=== PATIENT | male | born 1965 | race Caucasian/White ===

== ENCOUNTER → 2019-04-30 09:17 | Outpatient (BNVA) | payer MEDICAID, SELFPAY | PROVIDERS: Referring Provider Nurse Practitioner Family; Visit Provider Orthopaedic Surgery | DX: M25.552 Pain in left hip (principal) | CPT/HCPCS: 73502 ==

== ENCOUNTER → 2020-05-21 12:07 | Outpatient (BNVA) | payer MEDICAID, SELFPAY | PROVIDERS: PCP Nurse Practitioner Family; Visit Provider Psychiatry & Neurology Neurology | DX: G56.22 Lesion of ulnar nerve, left upper limb (principal); F17.210 Nicotine dependence, cigarettes, uncomplicated | CPT/HCPCS: 95886; 95908 ==

== ENCOUNTER → 2020-07-30 08:11 | Outpatient (BNVA) | payer MEDICAID, SELFPAY | PROVIDERS: PCP Nurse Practitioner Family; Referring Provider Nurse Practitioner Family; Visit Provider Specialist | DX: M25.522 Pain in left elbow (principal) | CPT/HCPCS: 73080 ==

== ENCOUNTER 2020-08-11 07:28 | Outpatient (CLI) | payer MEDICAID, SELFPAY ==
--- NOTE | 2020-08-11 07:36 | CT_ITS ---
WS: [id number] LDCT LUNG CANCER SCREENING HISTORY: HX OF TOBACCO USE/NICTOTINE DEPENDENCE,CIGARETTES TECHNIQUE: Axial imaging performed from the apices to 1 cm below the costophrenic angles. Coronal and sagittal reformats are submitted with axial MIP series. All CT scans at [facility] use at least one of these dose optimization techniques: automated exposure control; mA and/or kV adjustment per patient size (includes targeted exams where dose is matched to clinical indication); or iterativ e reconstruction. DLP: 101.81 mGy.cm DIvol: 2.85 mGy COMPARISON: None available. Diagnostic quality: Satisfactory Lung Nodules: There are multiple benign granuloma throughout the lungs. No suspicious nodules. There are no noncalcified masses or nodules. No endobronchial lesion. Lungs: Chronic emphysema. Heart: Normal size heart. No effusion. There are a few scattered coronary artery calcifications. Other findings: There are a few small benign-appearing lymph nodes. These cannot be further classifie d on this lung screening exam. Some these lymph nodes are calcified. Mild atherosclerosis aorta. Cholelithiasis. CT/CT lung screening [id number] IMPRESSION: LUNG-RADS: 1-Negative FOLLOW UP: 12 Month: Continue annual screening with LDCT OTHER FINDINGS (S MODIFIER): None.
== END 2020-08-11 07:29 | disposition home or self-care (01) ==
PROVIDERS: PCP Nurse Practitioner Family; Visit Provider Nurse Practitioner Family
DX: Z12.2 Encounter for screening for malignant neoplasm of respiratory organs (principal); Z87.891 Personal history of nicotine dependence
CPT/HCPCS: 71271

== ENCOUNTER 2021-01-11 14:01 | Outpatient (CLI) | payer MEDICAID, SELFPAY ==
[2021-01-11 15:41] LABS: Basophils # 0.1 10^3/uL (0.0-0.1); Basophils % 1.4 %; Eosinophils # 0.5 10^3/uL (0.0-0.8); Eosinophils % 8.5 %; Hematocrit 45.8 % (42.0-52.0); Hemoglobin 15.3 g/dL (11.7-16.6); Lymphocytes # 2.8 10^3/uL (0.8-4.8); Lymphocytes % 44.2 %; Mean Corpuscular HGB Conc 33.4 g/dL (30.0-36.0); Mean Corpuscular Hemoglobin 28.5 pg (28.0-34.0); Mean Corpuscular Volume 85.3 fl (80-94); Mean Platelet Volume 9.9 fL (7.4-10.4); Monocytes # 0.5 10^3/uL (0.2-0.9); Neutrophils # 2.37 10^3/uL (1.8-7.7); Neutrophils % 37.4 %; Nucleated Red Blood Cells % 0 %; Platelet Count 235 10^3/cmm (130-400); Red Blood Count 5.37 10^6/uL (4.1-5.3); White Blood Count 6.3 10^3/uL (4.0-10.0)
--- NOTE | 2021-01-11 16:27 | ONC CON_ITS ---
Dr. Estrada New Patient Note Patient: Asa Villatoro Unit #: [id number]: 1965 Dicatated By: Rudy Estrada M.D.Date of Visit: Jan 11, 2021 Onc MED New Patient/Consult Referring Physician: Fletcher Raines History of Present Illness: Mr. Asa Villatoro, is a 56-year-old gentleman with a longstanding history of smoking, went to see his PMD on December 14, 2020 with bumps on arms due to yellowjacket attack, his lab work-up done on December 14, 2020 showed white blood count 10.3 normal being 2.6-8.8 hemoglobin 15.8 hematocrit 48.1 platelets 217,000 ANC 5500. Patient denies any history of leukocytosis in the past, denies any history of recurrent infections, denies any history of dysuria or hematuria, denies any history of sinus problem, patient is a chronic smoker and smokes about half pack a day, denies alcohol use, denies any night sweats, denies any peripheral lymphadenopathy or abdominal fullness, denies any weight loss, denies any recurrent infections, denies any abdominal pain, melena or hematochezia. Past Medical History: Mr. Villatoro's medical history consists of biotin deficiency, degenerative disease of the spine, degenerative joint disease, hyperlipidemia, and hypertension. Past Surgical History: Mr. Villatoro's surgical history is unremarkable. Medications: Atorvastatin Calcium 1 Tablet (of 40 mg) Oral daily, Ergocalciferol 1 Capsule (of 50,000 International Unit(s)) Oral daily, Lisinopril 1 Tablet (of 40 mg) Oral daily, Meloxicam 1 Tablet (of 7.5 mg) Oral daily PRN Allergies: Ampicillin Social History: Mr. Villatoro has a life partner. He is a daily smoker who has smoked 0.5 packs/day for 42 years. He has indicated exposure to the following products: chewing tobacco. Family History: There is no documented family history. Review Of Symptoms: Review of Systems is not available for this patient. Vital Signs: Performed on Jan 11, 2021 16:07: 0, 2, 0.00, 0.00 sq.m, 95 % (LOW), 75 /min, 22 /min, 126/70 mm(hg), 97.7 F (LOW), and 217.2 lbs (HIGH). Performance Status: 0 - Fully active, able to carry on all predisease activities without restrictions. (ECOG) Physical Examination: ENMT - No mouth sores, no thrush, no jaundice no cervical lymphadenopathy, Respiratory - Poor air entry otherwise clear, Cardiovascular - Regular rate and rhythm of heart, Abdomen - Soft, bowel sounds present, Extremities - No visible edema. Lab/Imaging: Most recent lab results are not available for this patient. Impression: Mild leukocytosis, etiology unclear could be due to inflammatory response to yellowjacket bite, or chronic inflammation e.g. arthritis or chronic smoking, or underlying myeloproliferative disorder but less likely History of mild polycythemia, probably reactive to chronic smoking, or underlying sleep apnea. Hypertension Chronic arthritis Plan: Discussed with patient regarding his labs white blood count 6.3 hemoglobin 15.3 hematocrit 45.8 platelets 235,000 with a normal differential Clinically, patient doing well with no new signs symptom suggestive for acute or chronic infection, his repeat CBC done today shows normal values, resolution of mild leukocytosis as well as polycythemia. At this point, no further work-up from hematology point of view rather monitor, patient is scheduled to see his PMD in first week of February 2021, in that case, we will see him back in 2 months with CBC, Patient was advised to quit smoking and was offered any assistance he may need Signed By: Rudy Estrada M.D. <<Signature on File>>
== END 2021-01-11 14:02 | disposition home or self-care (01) ==
LOC: ONCMED 14:07
PROVIDERS: PCP Nurse Practitioner Family; Visit Provider Internal Medicine Hematology & Oncology
DX: D72.829 Elevated white blood cell count, unspecified (principal); D75.1 Secondary polycythemia; I10 Essential (primary) hypertension; M19.90 Unspecified osteoarthritis, unspecified site; F17.210 Nicotine dependence, cigarettes, uncomplicated; Z79.899 Other long term (current) drug therapy
CPT/HCPCS: 36415; 85025; 99204

== ENCOUNTER → 2021-02-15 08:27 | Outpatient (BNVA) | payer MEDICAID, SELFPAY | PROVIDERS: PCP Nurse Practitioner Family; Visit Provider Internal Medicine | DX: Z01.812 Encounter for preprocedural laboratory examination (principal); R19.5 Other fecal abnormalities | CPT/HCPCS: 87635 ==

== ENCOUNTER 2021-04-07 09:40 | Outpatient (CLI) | payer MEDICAID, SELFPAY ==
[2021-04-07 10:00] LABS: Basophils # 0.1 10^3/uL (0.0-0.1); Basophils % 0.9 %; Eosinophils # 0.2 10^3/uL (0.0-0.8); Eosinophils % 2.6 %; Hematocrit 47.9 % (42.0-52.0); Hemoglobin 15.6 g/dL (11.7-16.6); Lymphocytes # 3.2 10^3/uL (0.8-4.8); Lymphocytes % 42.4 %; Mean Corpuscular HGB Conc 32.6 g/dL (30.0-36.0); Mean Corpuscular Volume 85.8 fl (80-94); Mean Platelet Volume 9.2 fL (7.4-10.4); Monocytes # 0.6 10^3/uL (0.2-0.9); Monocytes % 7.7 %; Neutrophils # 3.41 10^3/uL (1.8-7.7); Neutrophils % 45.9 %; Nucleated Red Blood Cells % 0 %; Platelet Count 218 10^3/cmm (130-400); Red Blood Count 5.58 10^6/uL (4.1-5.3); Red Cell Distribution Width 13.7 % (12.1-15.1); White Blood Count 7.4 10^3/uL (4.0-10.0)
--- NOTE | 2021-04-08 21:08 | ONC FU_ITS ---
[facility] Progress Note Patient: Asa Villatoro Unit #: [id number]: 1965 Dicatated By: Lucero Del Valle N.P.Date of Visit:Apr 07, 2021 Onc MED Follow-up/Prog Note Chief Complaint: Leukocytosis History of Present Illness: Mr. Asa Villatoro, is a 56-year-old gentleman with a longstanding history of smoking, went to see his PMD on December 14, 2020 with bumps on arms due to yellowjacket attack, his lab work-up done on December 14, 2020 showed white blood count 10.3 normal being 2.6-8.8 hemoglobin 15.8 hematocrit 48.1 platelets 217,000 ANC 5500. Patient denies any history of leukocytosis in the past, denies any history of recurrent infections, denies any history of dysuria or hematuria, denies any history of sinus problem, patient is a chronic smoker and smokes about half pack a day, denies alcohol use, denies any night sweats, denies any peripheral lymphadenopathy or abdominal fullness, denies any weight loss, denies any recurrent infections, denies any abdominal pain, melena or hematochezia. Patient presents today for follow-up of leukocytosis. He denies weakness or fatigue. His appetite has been good. He denies fever, chills, night sweats. No shortness of breath, cough, chest pain. No GI problems or problems. He has bilateral shoulder pain that is chronic in nature. He denies headache or dizziness. He continues to smoke approximately half pack a day. Review Of Symptoms: See above. Past Medical History: Biotin deficiency Degenerative disease of the spine Degenerative joint disease Hyperlipidemia Hypertension Past Surgical History: Mr. Villatoro's surgical history is unremarkable. Allergies: Ampicillin Medications: Atorvastatin Calcium 1 Tablet (of 40 mg) Oral daily Ergocalciferol 1 Capsule (of 50,000 International Unit(s)) Oral daily Lisinopril 1 Tablet (of 40 mg) Oral daily Meloxicam 1 Tablet (of 7.5 mg) Oral daily PRN Family History: There is no documented family history. Social History: Mr. Villatoro has a life partner. He is a daily smoker who has smoked 0.5 packs/day for 43 years. He has indicated exposure to the following products: chewing tobacco. Physical Examination: Performed on Apr 07, 2021 13:19: Height - 73 in, Weight - 216.6 lbs (LOW), BSA - 2.23 sq.m, BMI - 28.58, Temperature - 98.2 F (LOW), Pulse - 78 /min, Respiration - 16 /min, BP - 120/70 mm(hg), O2 Sat - 95 % (LOW), Pain - 2, and Fatigue - 3. Performance Status: 0 - Fully active, able to carry on all predisease activities without restrictions. (ECOG) Constitutional Alert, cooperative, oriented. Mood and affect appropriate. Appears close to chronological age. Well nourished. Well developed. Respiratory Lungs are clear to auscultation without rhonchi or wheezing. Cardiovascular Regular rate and rhythm of heart without murmurs, gallops or rubs. Abdomen Non-tender, non-distended, no masses, ascites or hepatosplenomegaly. Good bowel sounds. No guarding or rebound tenderness. Musculoskeletal No tenderness or swelling, normal range of motion without obvious weakness. Psychiatric Alert and oriented times three. Coherent speech. Verbalizes understanding of our discussions today. Laboratory: Test performed on Apr 07, 2021 09:52 WBC 7.4 10 3/uL RBC 5.58 10 6/uL HGB 15.6 g/dL HCT 47.9 % MCV 85.8 fl MCH 28.0 pg MCHC 32.6 g/dL RDW 13.7 % Platelet Count 218 10 3/cmm MPV 9.2 fL Neutrophils 3.41 10 3/uL Lymphocytes 3.2 10 3/uL Monocytes 0.6 10 3/uL Eosinophils 0.2 10 3/uL Basophils 0.1 10 3/uL Neutrophil % 45.9 % Lymphocyte % 42.4 % Monocyte % 7.7 % Eosinophil % 2.6 % Basophils % 0.9 % NRBC % 0 % Impression: Mild leukocytosis, etiology unclear could be due to inflammatory response to yellowjacket bite, or chronic inflammation e.g. arthritis or chronic smoking, or underlying myeloproliferative disorder but less likely History of mild polycythemia, probably reactive to chronic smoking, or underlying sleep apnea. Hypertension Chronic arthritis Plan: Labs were reviewed with patient WBC 7.4 hemoglobin 15.6 hematocrit 47.9 platelets 218,000. Patient shows no signs of infection. Leukocytosis has resolved. Patient was advised to quit smoking. He will be seen on an as-needed basis. Signed By: Lucero Del Valle N.P. <<Signature on File>>
== END 2021-04-07 09:41 | disposition home or self-care (01) ==
PROVIDERS: PCP Nurse Practitioner Family; Visit Provider Nurse Practitioner Family
DX: D72.829 Elevated white blood cell count, unspecified (principal); D75.1 Secondary polycythemia; I10 Essential (primary) hypertension; F17.210 Nicotine dependence, cigarettes, uncomplicated; E53.8 Deficiency of other specified B group vitamins; E78.5 Hyperlipidemia, unspecified; Z79.899 Other long term (current) drug therapy
CPT/HCPCS: 36415; 85025; 99214

== ENCOUNTER → 2021-11-17 08:22 | Outpatient (BNVA) | payer MEDICAID, SELFPAY | PROVIDERS: PCP Nurse Practitioner Family; Visit Provider Nurse Practitioner Family | DX: I10 Essential (primary) hypertension (principal); R73.03 Prediabetes | CPT/HCPCS: 80053; 83036; 85025 ==

== ENCOUNTER → 2021-11-22 13:27 | Outpatient (BNVA) | payer MEDICAID, SELFPAY | PROVIDERS: PCP Nurse Practitioner Family; Visit Provider Nurse Practitioner Family | DX: E87.5 Hyperkalemia (principal) | CPT/HCPCS: 80053 ==

== ENCOUNTER 2022-05-30 08:16 | Outpatient (CLI) | payer MEDICAID, SELFPAY ==
--- NOTE | 2022-05-30 08:45 | MR_ITS ---
WS: [id number] MRI LUMBAR SPINE NONCONTRAST HISTORY: Back pain. Injury 2 years ago. LEFT leg pain and numbness. COMPARISON: None available. TECHNIQUE: Sagittal and axial multisequence imaging is submitted. Mild straightening of the normal cervical lordosis. Moderate degenerative disc space narrowing with v ertebral body osteophytes at C5 and C6. Straightening of the normal lumbar lordosis. L3 and L4 retrolisthesis by 2 to 3 mm. No acute fracture s or marrow edema. Mild disc space narrowing and desiccation. Conus terminates normally at L1. L1-L2: Mild diffuse annular disc bulging. No significant stenosis. Mild facet arthritis. L2-L3: Mild osteophytic ridging and annular disc bulging with mild facet arthritis. Mild encroachment upon the ventral thecal sac subarticular recesses and foramen. No significant stenosis. L3-L4: Moderate annular disc bulging, osteophytic ridging and facet arthritis. Fluid in the facet rosio nts and ligamentum flavum hypertrophy. Disc encroachment upon the ventral thecal sac and subarticular recesses. Mild bilateral foraminal stenosis, slightly greater on the LEFT. Broad-based disc protrusi on with annular fissure in the LEFT foramen. Disc and osteophyte contact the exiting LEFT L3 nerve ro ot. There is also mild disc contact on the traversing nerve roots. L4-L5: Diffuse annular disc bulging, osteophytic ridging and moderate facet joint arthritis. Moderate central and bilateral subarticular recess stenosis. There is a small central disc protrusion contrib uting to the stenosis. Mild foraminal stenosis. L5-S1: Mild annular disc bulge. There is slight contact without displacement on the S1 nerve roots. M oderate bilateral foraminal stenosis due to disc and osteophyte and facet disease. LEFT renal cyst 2.1 cm. There is a smaller cortical cyst RIGHT kidney. MR/MR lumbar spine wo con* [id number] IMPRESSION: 1. No acute fractures. 2. Moderate spondylitic changes. 3. Moderate bilateral foraminal stenosis at L5-S1. Additional disc bulging con tacts the S1 nerve roots bilaterally. 4. Moderate central, bilateral subarticular recess and mild foraminal stenosis at L4-5. 5. Mild bilateral foraminal stenosis LEFT greater than RIGHT at L3-4. 6. Additional broad-based disc protrusion with annular fissure in the LEFT L3- 4 foramina contacting the exiting LEFT L3 nerve root.
== END 2022-05-30 08:17 | disposition home or self-care (01) ==
LOC: RAD 08:18
PROVIDERS: PCP Nurse Practitioner Family; Visit Provider Family Medicine
DX: M51.16 Intervertebral disc disorders with radiculopathy, lumbar region (principal); M48.07 Spinal stenosis, lumbosacral region; M51.26 Other intervertebral disc displacement, lumbar region
CPT/HCPCS: 72148

== ENCOUNTER → 2022-06-07 10:14 | Outpatient (BNVA) | payer MEDICAID, SELFPAY | PROVIDERS: PCP Family Medicine; Referring Provider Family Medicine; Visit Provider Physician Assistant | DX: M48.061 Spinal stenosis, lumbar region without neurogenic claudication (principal); M51.36 Other intervertebral disc degeneration, lumbar region | CPT/HCPCS: 72110; 99203 ==

== ENCOUNTER → 2022-07-05 08:14 | Outpatient (BNVA) | payer MEDICAID, SELFPAY | PROVIDERS: PCP Family Medicine; Visit Provider Anesthesiology Pain Medicine | DX: M51.36 Other intervertebral disc degeneration, lumbar region (principal); M48.061 Spinal stenosis, lumbar region without neurogenic claudication; M51.16 Intervertebral disc disorders with radiculopathy, lumbar region | CPT/HCPCS: 99204 ==

== ENCOUNTER → 2022-07-19 14:09 | Outpatient (BNVA) | payer MEDICAID, SELFPAY | PROVIDERS: PCP Family Medicine; Visit Provider Anesthesiology Pain Medicine | DX: M54.16 Radiculopathy, lumbar region (principal) | CPT/HCPCS: 64483; 64484; J1100; J3490 ==

== ENCOUNTER 2022-08-18 16:12 | Emergency (ER) | payer MEDICAID, SELFPAY ==
[2022-08-18 16:16] VITALS: BP 148/81; PULSE 81; RESP 18; TEMP 36.8; O2SAT 95; BMI 28.7
--- NOTE | 2022-08-18 17:11 | ED_ITS ---
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 Patient reveals unintentional injury from a steel grinder. Denies any other injury, pain, fever or chills. Patient is up-to-date with his tetanus immunization Review of Systems General: Reports: 10 or more systems reviewed and unremarkable except in HPI and below Skin/Breast: Reports: other (Right-sided nose laceration) Psych: Denies: anxiety, depression, sleeping less, sleeping more, hopelessness, change in appetite, irritability, paranoia, memory loss, difficulty concentrating, visual hallucinations, auditory hallucinations, tactile hallucinations, suicidal ideation or homicidal ideation [facility] ED PFSH: Medical History Biotin deficiency disease Hyperlipidemia Hypertension Nicotine dependence Prediabetes Family History Mother Diabetes Hypertension Grandmother Cancer Social History Smoking and tobacco status: current every day smoker Alcohol intake: current Alcohol intake frequency: 3 or more drinks per day Desire information about alcohol rehabilitation?: No Substance/Drug Use: never Housing: House Highest education level completed: High School Graduate Physical Exam Const: COMMON NORMALS: no acute distress, average body habitus, patient o riented x3, no limitations, healthy appearing, alert and well nourished HENMT: COMMON NORMALS: normocephalic HEAD & SCALP: normocephalic NOSE: Other nasal findings present (right side laceration) NOSE IMAGE: 1. area with 3 cm laceration Eye: COMMON NORMALS: Equal, round and reactive pupils present, EOMs intact bilaterally, conjunctivae normal, no scleral icterus, no papilledema, normal visual gorman by confrontation and fundi normal bilaterally CONJUNCTIVA: Yes conjunctivae normal PUPIL: Yes Equal, round and reactive pupils present DI RECT OPHTHALMOSCOPY: Yes no papilledema and Yes fundi normal bilaterally Neck/C-Spine: COMMON NORMALS: no JVD Chest: COMMONS NORMALS: normal inspection of the chest, normal palpation of entire chest wall, normal inspection of the breasts and normal palpation of the breasts Breast/axilla inspection: Yes normal inspection of the breasts B REAST/AXILLA PALPATION: Yes normal palpation of the breasts Cardio: COMMON NORMALS: no JVD, regular rate, regular rhythm, S1 normal heart sound present, S2 normal heart sound present, No gallops present (Cardio), No clicks present (Cardio), No murmurs present (Cardio), No rub (Cardio) and Peripheral pulses 2+ throughout RATE: regular rate RHYTHM: regular rhythm HEART SOUNDS: S1 normal heart sound present and S2 normal heart sound present PERIPHERAL PULSES: Peripheral pulses 2+ throughout Neuro: COMMON NORMALS: patient oriented x3 SENSORIUM/ORIENTATION: Yes alert Procedures Laceration Laceration 1: Site: face (nose ) Size (cm): 5 Description: flap Local Anesthetic: lidocaine 2% Amount of anesthesia used (mL): 5 Pre-repair: wound explored, irrigated extensively and deep structures intact Skin layer closed with: nylon Size (cm): 5-0 Number of sutures: 8 Technique: simple, interrupted and running Subcutaneous layer closed with: vicryl Size: 4-0 Technique: running Course Vital Signs: Vital signs: Vital Signs Temperature 98.3 F 08/18/22 16:16 Pulse Rate 81 08/18/22 16:16 Respiratory Rate 18 08/18/22 16:16 Blood Pressure 148/81 08/18/22 16:16 Pulse Oximetry 95 08/18/22 16:16 Oxygen Delivery Me thod Room Air 08/18/22 16:16 MDM - Wound/Laceration Medical Decision Making Patient made comfortable emergency room. Area was cleaned and sutures applied. Patient was given referral to see PCP for wound recheck in 2 to 3 days. Differential Diagnosis Likely laceration, abscess, abrasion and avulsion of skin Discharge Plan Discharge Patient Disposition: Home Clinical Impression: Laceration of nose without complication, Laceration Condition: Stable Prescriptions: New keflex 500 mg PO TID 10 Days 0RF No Action ergocalciferol (vitamin D2) 1,250 mcg (50,000 unit) capsule 1,250 mcg PO .twice a month methocarbamol 750 mg tablet 750 mg PO TID PRN diclofenac sodium [Voltaren Arthritis Pain] 1 % gel 2 g topical QID Qty: 100 3RF Rx Instructions: apply to ARM/pAINFUL TENDON prednisone 20 mg tablet 20 mg PO DAILY Qty: 15 0RF Rx Instructions: 60mg on day 1,2,3 40mg on day 4,5 20mg on day 6,7 prednisone 20 mg tablet 20 mg PO DAILY Qty: 30 0RF Rx Instructions: 4 day 1 and 2, 3 1/2 day 3 and 4, then 3....Call Office on Mon for more directions gabapentin 300 mg capsule 300 mg PO TID Qty: 90 0RF diclofenac sodium 75 mg tablet,delayed release (DR/EC) See Rx Instructions .ROUTE .COMPLEX Qty: 60 1RF Dose Instruction: TAKE 1 TABLET BY MOUTH TWICE DAILY NEEDED FOR PAIN Rx Instructions: TAKE 1 TABLET BY MOUTH TWICE DAILY NEEDED FOR PAIN tramadol 50 mg tablet 50 mg PO Q8H PRN (Reason: pain) 30 Days Qty: 90 2RF lisinopril 40 mg tablet 40 mg PO DAILY Qty: 90 1RF atorvastatin 40 mg tablet 40 mg PO DAILY Qty: 90 1RF Discharge Orders: Discharge ED (Routine); Ordered 08/18/22 Ordered By: Nata Simon Referrals: Phuc Waggoner MD [Primary Care Provider] - Patient Instructions: Opioid Safety, Pain Management Activity Restrictions/Additional Instructions: Suture removal in 8 days . Take all antibiotics as directed. Coding Level of Care Code ED Director Of Email Marketing for Armando Washington
[2022-08-18] MEDS: lidocaine 2% INJ 20 mL INJECTION (18:15)
== END 2022-08-18 19:00 | disposition home or self-care (01) ==
PROVIDERS: Emergency Provider Family Medicine; PCP Family Medicine
DX: S01.21XA Laceration without foreign body of nose, initial encounter (principal); W27.8XXA Contact with other nonpowered hand tool, initial encounter
CPT/HCPCS: 12052; 99283

== ENCOUNTER → 2022-09-01 13:15 | Outpatient (BNVA) | payer MEDICAID, SELFPAY | PROVIDERS: PCP Family Medicine; Visit Provider Anesthesiology Pain Medicine | DX: M54.16 Radiculopathy, lumbar region (principal) | CPT/HCPCS: 64483; 64484; J1100; J3490 ==

== ENCOUNTER → 2022-12-01 10:43 | Outpatient (BNVA) | payer MEDICAID, SELFPAY | PROVIDERS: PCP Family Medicine; Visit Provider Family Medicine | DX: R73.03 Prediabetes (principal); I10 Essential (primary) hypertension; M51.36 Other intervertebral disc degeneration, lumbar region; M48.061 Spinal stenosis, lumbar region without neurogenic claudication | CPT/HCPCS: 80053; 85025 ==

== ENCOUNTER → 2023-11-16 11:01 | Outpatient (BNVA) | payer MEDICAID, SELFPAY | PROVIDERS: PCP Family Medicine; Visit Provider Family Medicine | DX: I10 Essential (primary) hypertension (principal) | CPT/HCPCS: 80053; 85025 ==

== ENCOUNTER → 2024-03-12 07:48 | Outpatient (BNVA) | payer MEDICAID, SELFPAY | PROVIDERS: PCP Family Medicine; Referring Provider Family Medicine; Visit Provider Specialist | DX: G56.22 Lesion of ulnar nerve, left upper limb (principal); G56.21 Lesion of ulnar nerve, right upper limb | CPT/HCPCS: 95910 ==

== ENCOUNTER → 2024-04-23 07:54 | Outpatient (BNVA) | payer MEDICAID, SELFPAY | PROVIDERS: PCP Family Medicine; Visit Provider Student in an Organized Health Care Education/Training Program | DX: G56.22 Lesion of ulnar nerve, left upper limb (principal) | CPT/HCPCS: 99204 ==

== ENCOUNTER 2024-05-13 05:40 | Day surgery (SDC) | payer MEDICAID, SELFPAY ==
[2024-05-13] VITALS (11 sets, daily range): BP systolic 108–184; BP diastolic 47–93; PULSE 66–77; RESP 16–18; TEMP 36.1–36.3; O2SAT 90–95; BMI 29.2
[2024-05-13] MEDS: acetaminophen 1,000 MG/100 ML PIGGYBACK 400 MG IV (07:04)
[2024-05-13] MEDS: sodium chloride 0.9% 1,000 ML 30 ML IV (07:22)
[2024-05-13 07:27] LABS: Anion Gap 13.1 (5-19); Blood Urea Nitrogen 14 mg/dL (8-23); Carbon Dioxide 26 mmol/L (22-29); Chloride 100 mmol/L (98-107); Creatinine Clr Calc Pharmacy 95.2782; Glomerular Filtration Rate 76.2 mL/min (90-130); Glucose 111 mg/dL (65-115); Osmolality Calculated 281 mOsm/kg (285-295); Potassium 4.1 mmol/L (3.5-5.1); Sodium 135 mmol/L (136-145)
--- NOTE | 2024-05-13 08:03 | ANES.PREANE2 ---
Pre-Anesthetic Assessment Height/Weight: Height 6 ft Weight 216 lb Preop Diagnosis: Cubital tunnel syndrome Operation Date: 05/13/24 08:40 Proposed Procedures p LEFT Cubital Tunnel Release(Left) - Nathan Macias DO s POSSIBLE Ulnar Nerve Transposition(Left) - Nathan Macias DO Was Beta Steffany taken within 24 hours: N/A Was Clonidine taken within 24 hours: N/A Last intake: Intake Last Liquid Date 05/12/24 Last Liquid Time 23:30 Last Solid Date 05/12/24 Last Solid Time 18:30 Social Tobacco and No alcohol Exam alert, oriented x 3 and regular rate & rhythm Diminished breath sounds bilaterally Airway Submandibular: within normal limits Cervical ROM: within normal limits Mallampati: Class III Comments: Comments: Edentulous Anesthetic Plan ASA status: 3 Anesthesia: General and Regional (specify below) Other: No prior issues with anesthesia NPO since yesterday History of hypertension on lisinopril Takes chronic hydrocodone for chronic pain Current smoker, occasional inhaler use Pneumonia 4 months ago Labs reviewed 05/13/2024 and acceptable for procedure Plan for general anesthesia with preop nerve block Medications/Allergies Home Medications ?Medication ?Instructions ?Recorded ?Confirmed ?Last Taken ?Type ergocalciferol (vitamin D2) 1,250 1,250 mcg PO .twice a month 06/22/21 05/13/24 Unknown History mcg (50,000 unit) capsule atorvastatin 40 mg tablet 40 mg PO DAILY #90 tabs 12/25/23 05/13/24 05/12/24 Rx cyclobenzaprine 10 mg tablet 10 mg PO BID PRN muscle spasm #60 12/25/23 05/13/24 05/12/24 Rx tabs lisinopril 40 mg tablet 40 mg PO DAILY #90 tabs 12/25/23 05/13/24 05/12/24 Rx albuterol 90 mcg-budesonide 80 2 inh inhalation QID PRN shortness 02/14/24 05/13/24 Unknown Rx mcg/actuation HFA aerosol inhaler of breath #5.9 grams (Airsupra) albuterol sulfate 90 mcg/actuation 1 inh inhalation QID PRN shortness 02/15/24 05/13/24 Unknown Rx aerosol inhaler (Ventolin HFA) of breath or wheezing #6.7 grams hydrocodone 7.5 mg-acetaminophen 1 tab PO BID PRN pain 30 days #60 04/22/24 05/13/24 Unknown Rx 325 mg tablet tabs Allergies Allergy/AdvReac Type Severity Reaction Status Date / Time ampicillin Allergy DIZZINESS Verified 05/13/24 06:43 Current Medications Generic Name Dose Route Start Last Admin Trade Name Freq PRN Reason Stop Dose Admin Sodium Chloride 1,000 mls @ 30 mls/hr 05/13/24 07:15 05/13/24 07:22 Sodium Chloride 0.9% IV 30 mls/hr .Q24H KYMBERLY Administration PFS Anesthesia Medical History History of eye pain Tendinitis of right forearm 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 Hypertension Hyperlipidemia Biotin deficiency disease Prediabetes Nicotine dependence Family History Mother Diabetes Hypertension Grandmother Cancer Social History Smoking and tobacco/nicotine status: current every day tobacco/nicotine user Alcohol intake: current Alcohol intake frequency: 3 or more drinks per day Substance/Drug Use: never Housing: House Highest education level completed: High School Graduate Data Anesthesia 05/13/24 06:59 BMP 05/13/24 06:59 Sodium 135 L Potassium 4.1 Chloride 100 Carbon Dioxide 26 BUN 14 Creatinine 1.0 Glucose 111 Calcium 9.0 Cardiac Studies: No Data to Display
--- NOTE | 2024-05-13 09:34 | ANES.PROC ---
Anesthesia Procedures Procedure/Date: 05/13/24 Nerve Block ^: Nerve Block 1: Main Anesthesia: other (2 mg Versed, 100 mcg fentanyl) Time Out Performed: Yes Consent: requested by attending/covering physician Nerve block location: supraclavicular Anesthesia monitors applied: pulse oximetry, EKG, BP cuff and oxygen Nerve block position: supine Anesthetic Used: ropivicaine 0.5% Amount of anesthesia used (mL): 30 Ultrasound used to: recognize landmarks Nerve Stimulator Used?: Yes Interscalene/Femoral BLK: other needle (pjunk) Injection: neg aspiration of heme Patient Tolerated Procedure: well Complications: none Additional Comments: decadron 4mg
--- NOTE | 2024-05-13 10:40 | W.PM.OPSUD ---
Surgery/Procedure H&P Update DATE OF PROCEDURE: May 13, 2024 DATE H&P PERFORMED: 04/23/24 H&P UPDATE INFORMATION: I have reviewed H&P completed within last 30 days, I have examined patient prior to procedure and No changes to prior documentation PREOP DIAGNOSIS: Left cubital tunnel syndrome PRIMARY INDICATION FOR PROCEDURE: Left cubital tunnel syndrome PLANNED PROCEDURE: Operation Date: 05/13/24 08:40 Proposed Procedures p LEFT Cubital Tunnel Release(Left) - Nathan Macias DO s POSSIBLE Ulnar Nerve Transposition(Left) - Nathan Macias DO
--- NOTE | 2024-05-13 10:45 | PC.NURSE ---
0918- Timeout preformed for left supraclavicular nerve block. 2mg Versed, 100mcg Fentanyl administered by Dr. You prior to needle insertion with ultrasound guidance. 30ml 0.5% Ropivicaine injected.
[2024-05-13] MEDS: clindamycin 900 MG/50 ML PREMIX 100 MG IV (10:47)
--- NOTE | 2024-05-13 11:23 | P.BOP_ITS ---
Date of Procedure: 05/13/2024 Surgeon: Nathan Macias DO Brokerage Office Manager(s): Jamal Macias PA-C Procedure(s) performed: Left cubital tunnel release Findings of the procedure(s): Patient underwent procedure as planned without issues or complications no subluxation of the ulnar nerve was appreciated standard in situ left cubital tunnel release performed. Patient tolerated well without issues or complications. Estimated blood loss: 5 mL Specimen(s) removed: None Post-operative diagnosis: Left cubital tunnel syndrome
--- NOTE | 2024-05-13 11:24 | P.OP_ITS ---
Operative Report Date of procedure: May 13, 2024 Surgeon: Nathan Macias DO Registered Land Surveyor: Jamal Macias PA-C: PA was necessary for assistance in this case with hand positioning to execute the procedure, retraction and protection of neurovascular structures as well as to assist with wound closure and dressing application. Procedure: Preoperative diagnosis: Left?cubital?tunnel syndrome Post-op diagnosis:? Left?cubital?tunnel syndrome Post-op findings: See operative note Procedure done: Left?cubital?tunnel release(ulnar nerve decompression) Surgeon: Nathan Macias DO Estimated blood loss: 5 cc Tourniquet Time: 9 minutes IV fluids: See anesthesia record Complications: None Findings: See operative report narrative Condition: stable Disposition: same day Brief History: Patient is a pleasant 59-year-old male was seen evaluated in the outpatient setting for Left ulnar nerve neuropathy at the elbow.? nerve study consistent with preoperative diagnosis as well as positive exam findings on exam in the office for left cubital tunnel syndrome. on my examination in the office patient findings are consistent with this preoperative diagnosis. We had detailed discussion in office about continued nonoperative intervention versus operative intervention.? Patient understands the risk benefits complications alternatives to surgical and nonsurgical treatment options.? Patient understands the risks include but not limited to make it better, make it worse, infection, permanent injury to nerve, decreased function and sensation to the hand with per sistent weakness.? Given these risks patient understands and agrees to proceed with current plan.? Patient elects to proceed with a Left?cubital?tunnel release and possible ulnar nerve transposition. all questions answered. Procedure: Patient was seen and evaluated in the preoperative holding area.? The consent that was filled out in office was reviewed with patient and confirmed to be lora ropriate for Left ulnar nerve?cubital?tunnel release and possible ulnar nerve transposition.? Correct extremity was then marked.? Patient was seen evaluated by the preoperative team as well as anesthesia department.? Once cleared for surgery patient was then taken to the operative suite and transported onto the operative table all bony prominences were well-padded and patient was secured to the table.? Left upper extremity was placed on an armboard.? Patient then underwent anesthesia per the anesthesia department. The Left upper extremity tourniquet was applied. Patient's Left upper extremity was then prepped and draped in standard orthopedic fashion.? i This point a final timeout was performed. Patient received appropriate preop antibiotics. Esmarch tourniquet was used to exsanguinate the operative extremity and was insufflated to 250 mmHg.? Standard curvilinear incision was made centering over the ulnar nerve between the medial epicondyle and olecranon process.? Sharp scalpel excision through skin and subcutaneous tissue was performed.? Once I encountered subcutaneous tissue I then utilized dissection scissors to spread in the path of the [facility] and care was made to protect any nerve branches throughout this case.? I then utilized a scalpel to complete my dissection directly on over to the flexor pronator mass and elevated this fat tissue directly off of the fascia.? I started my dissection of the ulnar nerve the nerve proximally.? Once identified I then utilized Littler dissection scissors and decompress the nerve completely and proximally and utilized blunt dissection to make sure there was no entrapment proximally..? Once decompressed proximally I then traced the nerve distal through Barcenas's ligament and as it entered the FCU fascia aponeurosis and completed by decompression and ulnar nerve neurolysis distally.? The nerve was completely released in situ no areas of entrapment I was able to place my finger distally and proximally with no areas entrapment along the nerve.? At this point in time by in situ release was completed I then subsequently took the elbow through range of motion and and there was no evidence of ulnar nerve subluxation as result no transposition needed.?? ?Wound bed was then thoroughly irrigated.? Tourniquet was deflated.? Maintained exact hemostasis with bipolar electrocautery.? The skin was reapproximated with interrupted Vicryl subcutaneous suture 3-0.? I next utilized a running stitch with 3-0 nylon.? Extremity was then cleaned and the incision was then covered with Xeroform 4 x 4's ABD Curlex and soft roll and a Eb wrap was then applied with an Eb wrap.? Patient was then awakened from anesthesia and taken to PACU in stable condition. Disposition: Patient taken to PACU in stable condition.? Patient given lora ropriate discharge instructions as well as pain medication.? ?Patient will see orthopedics in office in 2 weeks.? pt understands? if they has any questions they can contact the office.
--- NOTE | 2024-05-13 11:41 | P.PCN_ITS ---
PACU note Narrative: Patient is a 59-year-old male who just underwent a left cubital tunnel release. Patient transferred to PACU in stable condition. Pain is well controlled. Dressing on hand is dry and in place. Patient's fingers are warm and well- perfused. Patient can wiggle fingers. normal cap refill under 2 seconds. Unable to perform any further exam of motor or sensory function due to residual anesthesia block. Exam: awake Disposition: discharged
--- NOTE | 2024-05-13 12:51 | ANE.PACU2 ---
Inpatient post-anesthesia follow up: Airway intact: Yes Vital signs: Temperature 97.4 F Pulse Rate 71 Respiratory Rate 18 Blood Pressure 120/69 Pulse Oximetry 93 Oxygen Delivery Me thod Room Air Oxygen Flow Rate 2 Fraction of Inspir ed Oxygen Hydration adequate: Yes Nausea and vomiting: No Pain level: 1 Mental status: Baseline
== END 2024-05-13 12:51 | disposition home or self-care (01) ==
PROVIDERS: Student in an Organized Health Care Education/Training Program; PCP Family Medicine; Visit Provider Student in an Organized Health Care Education/Training Program
PROC: (CPT 64718; principal; 2024-05-13 08:30)
DX: G56.22 Lesion of ulnar nerve, left upper limb (principal); I10 Essential (primary) hypertension; E78.5 Hyperlipidemia, unspecified; F17.200 Nicotine dependence, unspecified, uncomplicated; Z79.899 Other long term (current) drug therapy; G89.29 Other chronic pain; Z79.891 Long term (current) use of opiate analgesic; Z88.0 Allergy status to penicillin
CPT/HCPCS: 64718; 36415; 80048; J0131; J1100; J2405; J2704; J3010; J3490; J7030

== ENCOUNTER → 2024-05-29 13:50 | Outpatient (BNVA) | payer MEDICAID, SELFPAY | PROVIDERS: PCP Family Medicine; Visit Provider Student in an Organized Health Care Education/Training Program | DX: Z98.890 Other specified postprocedural states (principal) | CPT/HCPCS: 99024 ==

== ENCOUNTER → 2024-07-03 11:02 | Outpatient (BNVA) | payer MEDICAID, SELFPAY | PROVIDERS: PCP Family Medicine; Visit Provider Family Medicine | DX: I10 Essential (primary) hypertension (principal) | CPT/HCPCS: 80061 ==

== ENCOUNTER → 2024-09-18 07:59 | Outpatient (BNVA) | payer MEDICAID, SELFPAY | PROVIDERS: PCP Family Medicine; Visit Provider Student in an Organized Health Care Education/Training Program | DX: M25.522 Pain in left elbow (principal); Z98.890 Other specified postprocedural states; M77.12 Lateral epicondylitis, left elbow | CPT/HCPCS: 73080; 99213 ==